=== PATIENT | female | born 1960 | race Caucasian/White ===

== ENCOUNTER 2019-07-17 17:22 | Emergency (ER) | payer MEDICARE, BC ==
--- NOTE | 2019-07-17 19:24 | ED ---
Head Injury - HPI Summary HPI Summary: The pt is a 58 yr old female presenting to [facility] c/o worsening head pain beginning 17 days [employer]. 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 17 days [employer], she was at her daughters house, went to slate picker a tissue she sneezed in, and hit her head after standing up. She applied ice to the top of her head immediately after the injury and has been sleeping with an ice pack on her head due to the pain. She applied antibiotic ointment and hydrocortisone to her head yesterday. No aggravating or alleviating factors noted. She reports her pain severity due to the head pain a 6/10. She also reports some dizziness and mild nausea that has since improved, neck pain, and warmth around the injury but denies any vomiting. She has Hx of arrhythmia and [employer]. - History Of Current Complaint Chief Complaint: EDHeadInjury Stated Complaint: HIT HEAD PER PT Time Seen by Provider: 07/17/19 19:13 Hx Obtained From: Patient Hx Last Menstrual Period: 1 MONTH AGO Mechanism Of Injury: Blunt Trauma Onset/Duration: Started Weeks Ago, Still Present Onset of Pain: Post Accident Severity Currently: Moderate Severity Initially: Moderate Pain Intensity: 6 Pain Scale Used: 0-10 Numeric Location of Head Injury: Other: - top of head Location: Discrete At: - top of head Aggravating Factor(s): Other: - nothing Alleviating Factor(s): Other: - nothing Associated Signs And Symptoms: Negative - vomiting, Neck Pain, Nausea, Other: - pos - dizziness, head pain, warmth around injury - Allergies/Home Medications Allergies/Adverse Reactions: Allergies Allergy/AdvReac Type Severity Reaction Status Date / Time amoxicillin Allergy Rash Verified 07/17/19 17:37 cephalexin Allergy Abdominal Verified 07/17/19 17:37 Pain erythromycin base Allergy Unknown Verified 07/17/19 17:37 Reaction Details hydromorphone Allergy Rash Verified 07/17/19 17:37 lactose Allergy Abdominal Verified 07/17/19 17:37 Pain latex Allergy Rash And Verified 07/17/19 17:37 Itching meloxicam Allergy Muscle Ache Verified 07/17/19 17:37 nitrofurantoin Allergy Abdominal Verified 07/17/19 17:37 Pain Penicillins Allergy Anaphylatic Verified 07/17/19 17:37 Shock Cikzdvf-Ftk-Tag Reductase Allergy Muscle Ache Verified 07/17/19 17:37 Inhibitor Sulfa (Sulfonamide Allergy Rash Verified 07/17/19 17:37 Antibiotics) sulfite Allergy Difficulty Verified 07/17/19 17:37 Breathing/Wheezing tetracycline Allergy Unknown Verified 07/17/19 17:37 Reaction Details tramadol Allergy Muscle Ache Verified 07/17/19 17:37 Gold seal Allergy Severe Rash Uncoded 07/17/19 17:37 Glutan Allergy Intermediate GI Upset Uncoded 07/17/19 17:37 Wheat Allergy Intermediate GI Upset Uncoded 07/17/19 17:37 Antichlorgenic Allergy Unknown Unknown Uncoded 07/17/19 17:37 Reaction Details PMH/Surg Hx/FS Hx/Imm Hx Endocrine/Hematology History: Denies: Hx Anticoagulant Therapy Cardiovascular History: Reports: Hx Hypertension Respiratory History: Reports: Hx Asthma, Other Respiratory Problems/Disorders - Chronic Sinusitis Musculoskeletal History: Reports: Other Musculoskeletal History - CERVICAL SPINAL FUSION. CURR LOW BACK PAIN W/ PAIN DOWN MARIE LEGS & NUMB R L Neurological History: Reports: Hx Seizures, Other Neuro Impairments/Disorders - SHUNT - Surgical History Surgery Procedure, Year, and Place: 2 C-SECTIONS, CERVICAL SPINE FUSION 07/1997, [employer] SHUNT/BRAIN 2006 Infectious Disease History: No Infectious Disease History: Reports: Hx Shingles, History Other Infectious Disease - PERTUSSIS Denies: Traveled Outside the [place] in Last 30 Days - Family History Known Family History: Negative: Renal Disease - Social History Alcohol Use: Occasionally Alcohol Amount: 1 GLASS RED WINE OR 1/2 BOTTLE BEER/DAY Substance Use Type: Reports: None Smoking Status (MU): Former Smoker Have You Smoked in the Last Year: Yes Review of Systems Constitutional: Other - pos - warmth around head injury Positive: Nausea. Negative: Vomiting Musculoskeletal: Other - pos - neck pain Neurological: Other - pos - head pain, dizziness All Other Systems Reviewed And Are Negative: Yes Physical Exam - Summary Physical Exam Summary: Appearance: Well-appearing, Well-nourished, lying in bed comfortably Skin: Warm, dry, no obvious rash Eyes: sclera anicteric, no conjunctival pallor ENT: mucous membranes moist, pharynx appears normal Neck: Supple, nontender Respiratory: Clear to auscultation, no signs of respiratory distress Cardiovascular: Normal S1, S2. No murmurs. Normal distal pulses in tibial and radial bilaterally. Abdomen: Soft, nontender, normal active bowel sounds present Musculoskeletal: Normal, Strength/ROM Intact Neurological: A&Ox3, awake and alert, mentation is normal, speech is fluent and appropriate Psychiatric: affect is normal, does not appear anxious or depressed Triage Information Reviewed: Yes Vital Signs On Initial Exam: Initial Vitals Temp Pulse Resp BP Pulse Ox 98.1 F 72 16 171/96 98 07/17/19 17:24 07/17/19 17:24 07/17/19 17:24 07/17/19 17:24 07/17/19 17:24 Vital Signs Reviewed: Yes Procedures - Sedation Patient Received Moderate/Deep Sedation with Procedure: No Diagnostics - Vital Signs Vital Signs Temp Pulse Resp BP Pulse Ox 07/17/19 17:24 98.1 F 72 16 171/96 98 - Laboratory Result Diagrams: 07/17/19 19:29 07/17/19 19:29 Lab Statement: Any lab studies that have been ordered have been reviewed, and results considered in the medical decision making process. - CT Cervical Spine CT CT Interpretation Completed By: Radiologist Summary of CT Findings: IMPRESSION: No acute fracture. An ED Physician has reviewed this report. Brain CT CT Interpretation Completed By: Radiologist Summary of CT Findings: IMPRESSION: 1. There has been no change since 2016. 2. Minimal chronic ischemic white matter change which is similar. 3. Right frontal shunt tube extending through the subarachnoid space along the anterior aspect of the right frontal lobe which is unchanged. ED Physician has reviewed this report. - EKG 1753 Cardiac Rate: NL - 64 bpm EKG Rhythm: Sinus Rhythm Summary of EKG Findings: EKG done at 1753 reveals NSR at 64 bpm. No STEMI. - Additional Comments Diagnostic Additional Comments: Shunt Study: IMPRESSION: Intact appearance of right-sided ventriculoperitoneal shunt catheter. ED Physician has reviewed this report. Head Injury Course/Dx Course Of Treatment: The pt is a 58 yr old female presenting to [facility] c/o head pain beginning 17 days [employer]. She notes that she was kicked in the head by a horse while a student at [employer] and has had a [employer] shunt ever since. 17 days [employer] , she was at her daughters house, went to slate picker a tissue she sneezed in, and hit her head after standing up. She applied ice to the top of her head immediately after the injury and has been sleeping with an ice pack on her head due to the pain. Physical exam unremarkable. Lab results normal except for MCH 33, sodium 133, and chloride 100. Cervical spine CT reveals no acute fracture. Brain CT reveals 1. There has been no change since 08/03/2016. 2. Minimal chronic ischemic white matter change which is similar. 3. Right frontal shunt tube extending through the subarachnoid space along the anterior aspect of the right frontal lobe which is unchanged. EKG done at 1753 reveals NSR @ 64 bpm, no STEMI. Final Dx is headache. Pt will be discharged home with PCP follow up. Pt is agreeable with this plan. - Diagnoses Provider Diagnoses: Headache - Physician Notifications Discussed Care Of Patient With: Wally Houston - Dr. Houston suggests pt discharge. Time Discussed With Above Provider: 21:58 Discharge ED - Sign-Out/Discharge Documenting (check all that apply): Patient Departure - discharge - Discharge Plan Condition: Stable Disposition: HOME Referrals: Wally Houston MD [Medical Doctor] - Additional Instructions: Your CT scan and shunt series look good, there is no sign of damage or malfunction of the shunt. I'm not sure why it is taking so long for your pain to go away. I would like you to be seen by our neurosurgeon, Dr. Giron, next week so he can take a look at this and see if anything further need be done. It would also be good for you to have a local specialist for the future. - Billing Disposition and Condition Condition: STABLE Disposition: Home - Attestation Statements Document Initiated by Teresita: Yes Documenting Scribe: Daryl Peoples Provider For Whom Teresita is Documenting (Include Credential): Shubham Henry MD Scribe Attestation: IDaryl, scribed for Shubham Henry MD on 07/18/19 at 0503. Scribe Documentation Reviewed: Yes Provider Attestation: The documentation as recorded by the Daryl brody accurately reflects the service I personally performed and the decisions made by me, Shubham Henry MD Status of Scribe Document: Viewed
[2019-07-17 19:37] LABS: Hematocrit 41 % (35-47); Hemoglobin 14.3 g/dL (12.0-16.0); Mean Corpuscular HGB Conc 35 g/dL (31-36); Mean Corpuscular Hemoglobin 33 pg (27-31); Mean Corpuscular Volume 96 fL (80-97); Mean Platelet Volume 8.7 fL (7.4-10.4); Platelet Count 176 10^3/uL (150-450); Red Blood Count 4.29 10^6 /uL (3.70-4.87); Red Cell Distribution Width 14 % (10-15); White Blood Count 5.8 10^3/uL (3.5-10.8)
[2019-07-17 19:58] LABS: Albumin/Globulin Ratio 1.4 (1-3); BUN/Creatinine Ratio 18.7 (8-20); EGFR African American 95.4 (>60); EGFR Non-African American 78.8 (>60); Globulin 2.9 g/dL (2-4); Potassium 4.2 mmol/L (3.5-5.0); Total Bilirubin 0.4 mg/dL (0.2-1.0); Total Protein 6.9 g/dL (6.4-8.9)
[2019-07-17 21:06] LABS: Calcium 8.6 mg/dL (8.6-10.3)
[2019-07-17 22:14] VITALS: BP 135/78
== END 2019-07-17 22:05 | disposition home or self-care (01) ==
LOC: ED 17:22
DX: R51 Headache (principal); I10 Essential (primary) hypertension; Z87.891 Personal history of nicotine dependence; Z88.5 Allergy status to narcotic agent; Z88.0 Allergy status to penicillin; Z88.2 Allergy status to sulfonamides; Z88.8 Allergy status to other drugs, medicaments and biological substances; Z88.1 Allergy status to other antibiotic agents; Z91.040 Latex allergy status
CPT/HCPCS: 36415; 70250; 70450; 71045; 72020; 72125; 74018; 80053; 84484; 85027; 93005; 99282